=== PATIENT | female | born 1960 | race Caucasian/White ===

== ENCOUNTER 2022-12-19 05:44 | Emergency (ER) | payer MEDICAID ==
[~2022-12-19] VITALS: Ht 149.9 cm; Wt 52.0 kg
[2022-12-19 08:01] VITALS: BP 166/99
[2022-12-19] MEDS ORDERED: NEOMYCIN-BACITRACIN-POLYM UNITDOSE PKG TOP OINT TOP ONE (08:15)
[2022-12-19] MEDS ORDERED: BACDST PO (08:16)
[2022-12-19] MEDS ORDERED: ACET1CAP14 PO (08:16)
[2022-12-19] MEDS ORDERED: NEOM1OIN18 EXT (08:37)
== END 2022-12-19 08:26 | disposition home or self-care (01) ==
LOC: ER 05:44
DX: L03.114 Cellulitis of left upper limb (principal); J45.909 Unspecified asthma, uncomplicated